=== PATIENT | male | born 1995 | race Caucasian/White ===

== ENCOUNTER 2017-07-04 15:34 | Emergency (ER) | payer BC ==
[2017-07-04 15:53] VITALS: RESP 16; TEMP 98.6
--- NOTE | 2017-07-04 16:22 | XR ---
EXAMINATION TYPE: XR chest 2V DATE OF EXAM: 07/04/2017 CLINICAL HISTORY: Pain TECHNIQUE: Frontal and lateral views of the chest are obtained. COMPARISON: None FINDINGS: There is no focal air space opacity, pleural effusion, or pneumothorax seen. The cardiac silhouette size is within normal limits. The osseous structures are intact. IMPRESSION: No acute cardiopulmonary process.
--- NOTE | 2017-07-04 16:28 | ED ---
General Adult HPI - General Chief complaint: Chest Pain Stated complaint: Chest pain/weakness Time Seen by Provider: 07/04/17 15:55 Source: patient Mode of arrival: wheelchair Limitations: no limitations - History of Present Illness Initial comments: Jae is a previously healthy 21 yo male who presents to the ED at his fathers request for evaluation of chest pain. Patient reports that he was in his usual state of health yesterday, he reports he had to [employer] for dinner and went to bed. Patient reports that he was woke during the night with a burning epigastric pain that radiated from his epigastrium to his retrosternal area. He reports that the pain lasted for a period of time and then subsided without any intervention. Patient was then able to go back to sleep. Patient reports that this morning he told his dad about this pain as stabbing became concerned advised him that he should be evaluated in the emergency department. Patient reports that throughout the day today he has not experienced any further episodes of chest pain. He reports that when he did experience an epigastric burning he did not have any shortness of breath, diaphoresis, lightheadedness or near-syncope. Patient states that he has no known cardiac history, however approximately 6 years ago his father was hospitalized after a cardiac arrest. At that time the patient did experience some panic attacks and followed up with his carry out clerk and shelf stocker , at that time he had a Holter monitor which revealed no abnormalities. Patient denies any recreational drug use, specifically any amphetamines, cocaine or any performance enhancing drugs. Reports that he is a every day cigarette smoker. Patient works in a physically demanding job but denies any recent injury or excessive heavy lifting atypical for his daily routine. - Related Data Home Medications Medication Instructions Recorded Confirmed Montelukast [Singulair] 10 mg PO DAILY 02/02/14 02/02/14 Previous Rx's Medication Instructions Recorded Omeprazole 20 mg PO DAILY #30 tablet. 07/04/17 Allergies Allergy/AdvReac Type Severity Reaction Status Date / Time No Known Allergies Allergy Verified 07/04/17 15:53 Review of Systems ROS Statement: Those systems with pertinent positive or pertinent negative responses have been documented in the HPI. ROS Other: All systems not noted in ROS Statement are negative. Constitutional: Reports: fever Past Medical History Additional Past Medical History / Comment(s): allergies, hearing problems History of Any Multi-Drug Resistant Organisms: None Reported Past Surgical History: Ear Surgery Past Psychological History: No Psychological Hx Reported Smoking Status: Never smoker Past Alcohol Use History: None Reported Past Drug Use History: None Reported General Exam Limitations: no limitations General appearance: alert, in no apparent distress, obese Head exam: Present: atraumatic, normocephalic Eye exam: Present: normal appearance, PERRL ENT exam: Present: normal exam Respiratory exam: Present: normal lung sounds bilaterally. Absent: respiratory distress, wheezes, rales, rhonchi, stridor, chest wall tenderness, accessory muscle use, decreased breath sounds, prolonged expiratory Cardiovascular Exam: Present: regular rate, normal rhythm, normal heart sounds. Absent: systolic murmur, diastolic murmur, rubs, gallop, clicks GI/Abdominal exam: Present: soft, tenderness (Mild tenderness to deep palpation in epigastrium). Absent: distended Extremities exam: Present: normal inspection, normal capillary refill Neurological exam: Present: alert, oriented X3 Psychiatric exam: Present: normal affect, normal mood Skin exam: Present: warm, dry, intact Course Vital Signs 07/04/17 15:51 Temperature 98.6 F Pulse Rate 81 Respiratory 16 Rate Blood Pressure 154/85 O2 Sat by Pulse 99 Oximetry Medical Decision Making - Medical Decision Making Patient was seen and evaluated, history was obtained from the patient Patient with burning epigastric pain radiating to the retrosternal area in the middle of the night tonight, when he advises father the symptoms he was brought to the emergency department for evaluation Patient has been symptom free for greater than 12 hours EKG and chest x-ray were ordered EKG normal sinus rhythm rate is 66, normal axis, normal intervals, no acute ST elevations or depressions Chest x-ray with no acute findings Results were discussed with the patient, I advised him that I suspect his symptoms are secondary to acid reflux, I advised dietary modifications as well as omeprazole. In addition I had a long discussion with the patient regarding the need for smoking cessation. Patient expressed understanding and agreement with the plan. All questions pertaining to care were answered best my ability patient was discharged home in stable condition Disposition Clinical Impression: GERD (gastroesophageal reflux disease), Tobacco abuse Disposition: HOME SELF-CARE Condition: Poor Instructions: Chest Pain (ED), How to Stop Smoking (ED) Prescriptions: Omeprazole 20 mg PO DAILY #30 tablet. Is patient prescribed a controlled substance at d/c from ED?: No Referrals: Shakeel Lux DO [Primary Care Provider] - 1-2 days Time of Disposition: 16:27
[2017-07-04 16:33] VITALS: BP 147/69; PULSE 67
== END 2017-07-04 16:43 | disposition home or self-care (01) ==
LOC: EC 15:34
DX: K21.9 Gastro-esophageal reflux disease without esophagitis (principal); F17.210 Nicotine dependence, cigarettes, uncomplicated; Z79.899 Other long term (current) drug therapy
CPT/HCPCS: 71046; 93005; 99285

== ENCOUNTER → 2018-09-27 | Outpatient (CLI) | payer BC ==
[2018-09-27 11:02] LABS: Basophils # (A) 0.1 k/uL (0-0.2); Basophils % (A) 0 %; Eosinophils # (A) 0.2 k/uL (0-0.7); Eosinophils % (A) 2 %; HCT 44.1 % (39.0-53.0); HGB 14.4 gm/dL (13.0-17.5); Lymphocytes # (A) 2.3 k/uL (1.0-4.8); Lymphocytes % (A) 19 %; MCH 29.6 pg (25.0-35.0); MCHC 32.6 g/dL (31.0-37.0); Mean Platelet Volume 7.5; Monocytes # (A) 0.7 k/uL (0-1.0); Monocytes % (A) 6 %; Neutrophils # (A) 8.3 k/uL (1.3-7.7); Neutrophils % (A) 70 %; Platelet Count 272 k/uL (150-450); RBC 4.84 m/uL (4.30-5.90); RDW 13.3 % (11.5-15.5); WBC 11.8 k/uL (3.8-10.6)
== END | disposition home or self-care (01) ==
LOC: LABWHC1 10:19
PROVIDERS: ATTEND Otolaryngology
DX: J02.9 Acute pharyngitis, unspecified (principal); R53.83 Other fatigue
CPT/HCPCS: 36415; 85025; 86308

== ENCOUNTER 2018-11-01 22:59 | Emergency (ER) | payer BC ==
[2018-11-01 23:06] VITALS: RESP 18
[2018-11-01] MEDS ORDERED: SODIUM CHLORIDE 0.9% 500 ML 500 ML IV ONE (23:49)
[2018-11-02 00:42] LABS: Basophils # (A) 0.1 k/uL (0-0.2); Basophils % (A) 1 %; Eosinophils # (A) 0.3 k/uL (0-0.7); Eosinophils % (A) 3 %; HCT 39.3 % (39.0-53.0); HGB 12.9 gm/dL (13.0-17.5); Lymphocytes # (A) 2.6 k/uL (1.0-4.8); Lymphocytes % (A) 24 %; MCH 29.1 pg (25.0-35.0); MCHC 32.8 g/dL (31.0-37.0); MCV 88.9 fL (80.0-100.0); Mean Platelet Volume 6.8; Monocytes # (A) 0.6 k/uL (0-1.0); Monocytes % (A) 5 %; Neutrophils # (A) 7.2 k/uL (1.3-7.7); Neutrophils % (A) 66 %; Platelet Count 299 k/uL (150-450); RBC 4.42 m/uL (4.30-5.90); RDW 13.3 % (11.5-15.5); WBC 10.9 k/uL (3.8-10.6)
[2018-11-02 01:47] LABS: ALT 30 U/L (21-72); AST 25 U/L (17-59); African American GFR (CKD) >90 (>60 ml/min/1.73 sqM); Albumin 4.1 g/dL (3.5-5.0); Alkaline Phosphatase 83 U/L (38-126); Anion Gap 10 mmol/L; Blood Urea Nitrogen 14 mg/dL (9-20); Calcium 9.5 mg/dL (8.4-10.2); Carbon Dioxide 24 mmol/L (22-30); Chloride 105 mmol/L (98-107); Glucose 103 mg/dL (74-99); Sodium 139 mmol/L (137-145); Total Bilirubin 0.6 mg/dL (0.2-1.3); Total Protein 7.3 g/dL (6.3-8.2)
--- NOTE | 2018-11-02 02:20 | ED ---
Extremity Problem HPI - General Chief complaint: Extremity Problem,Nontraumatic Stated complaint: swollen ankles Time Seen by Provider: 11/01/18 23:09 Source: patient Mode of arrival: ambulatory Limitations: no limitations - History of Present Illness Initial comments: 23-year-old male patient presents to the emergency department today for evaluation of lower extremity swelling. Patient states that his legs have been swollen over the last couple of days. Patient states that he was off work after having his tonsils removed. Patient states upon returning to work he noticed that his legs are becoming more swollen. States he has had some redness over the anterior aspect. Denies any fever or chills. Denies any history of similar symptoms. Denies any calf pain or tenderness. Denies any recent long car trips or history of DVT. Denies any use of hormonal medications. He denies any shortness of breath or cough. Patient states he was started on amlodipine by his ENT physician 2 weeks ago. Patient denies any recent rash, chest pain, abdominal pain, nausea, vomiting, diarrhea, constipation, back pain, numbness, tingling, dizziness, weakness, hematuria, dysuria, urinary urgency, urinary frequency, headache, visual changes, or any other complaints. - Related Data Home Medications Medication Instructions Recorded Confirmed Montelukast [Singulair] 10 mg PO DAILY 02/02/14 02/02/14 Previous Rx's Medication Instructions Recorded Omeprazole 20 mg PO DAILY #30 tablet. 07/04/17 Allergies Allergy/AdvReac Type Severity Reaction Status Date / Time No Known Allergies Allergy Verified 11/01/18 23:04 Review of Systems ROS Statement: Those systems with pertinent positive or pertinent negative responses have been documented in the HPI. ROS Other: All systems not noted in ROS Statement are negative. Past Medical History Past Medical History: Hypertension Additional Past Medical History / Comment(s): allergies, hearing problems History of Any Multi-Drug Resistant Organisms: None Reported Past Surgical History: Adenoidectomy, Ear Surgery, Tonsillectomy Past Psychological History: No Psychological Hx Reported Smoking Status: Current some day smoker Past Alcohol Use History: Occasional Past Drug Use History: None Reported General Exam Limitations: no limitations General appearance: alert, in no apparent distress, other (This is a well- developed,) Course Vital Signs 11/01/18 11/01/18 11/02/18 23:02 23:34 00:57 Temperature 98.4 F Pulse Rate 89 88 Respiratory 18 18 Rate Blood Pressure 159/91 121/82 117/72 O2 Sat by Pulse 98 97 Oximetry 11/02/18 03:01 Temperature 97.9 F Pulse Rate 80 Respiratory 18 Rate Blood Pressure 111/72 O2 Sat by Pulse 99 Oximetry Medical Decision Making - Medical Decision Making 23-year-old male patient presents to the emergency department today for evaluation bilateral lower extremity edema. Patient states when for the last 2 days. Physical examination did reveal nonpitting edema to the bilateral ankle and feet. Labs reviewed and are unremarkable. Patient did report he started taking amlodipine couple weeks ago after having a tonsillectomy. We did discuss possible side effect of amlodipine his lower extremities swelling. He is instructed to follow-up with his primary care physician for further evaluation and discussion of discontinuing this medication. He is instructed to keep his legs elevated. Return parameters were discussed in detail. He verbalizes understanding and agrees with this plan. - Lab Data Result diagrams: 11/02/18 00:10 11/02/18 00:10 Lab Results 11/02/18 11/02/18 Range/Units 00:10 00:10 WBC 10.9 H (3.8-10.6) k/uL RBC 4.42 (4.30-5.90) m/uL Hgb 12.9 L (13.0-17.5) gm/dL Hct 39.3 (39.0-53.0) % MCV 88.9 (80.0-100.0) fL MCH 29.1 (25.0-35.0) pg MCHC 32.8 (31.0-37.0) g/dL RDW 13.3 (11.5-15.5) % Plt Count 299 (150-450) k/uL Neutrophils % 66 % Lymphocytes % 24 % Monocytes % 5 % Eosinophils % 3 % Basophils % 1 % Neutrophils # 7.2 (1.3-7.7) k/uL Lymphocytes # 2.6 (1.0-4.8) k/uL Monocytes # 0.6 (0-1.0) k/uL Eosinophils # 0.3 (0-0.7) k/uL Basophils # 0.1 (0-0.2) k/uL Sodium 139 (137-145) mmol/L Potassium 4.0 (3.5-5.1) mmol/L Chloride 105 (98-107) mmol/L Carbon Dioxide 24 (22-30) mmol/L Anion Gap 10 mmol/L BUN 14 (9-20) mg/dL Creatinine 0.76 (0.66-1.25) mg/dL Est GFR (CKD-EPI)AfAm >90 (>60 ml/min/1.73 sqM) Est GFR (CKD-EPI)NonAf >90 (>60 ml/min/1.73 sqM) Glucose 103 H (74-99) mg/dL Calcium 9.5 (8.4-10.2) mg/dL Total Bilirubin 0.6 (0.2-1.3) mg/dL AST 25 (17-59) U/L ALT 30 (21-72) U/L Alkaline Phosphatase 83 (38-126) U/L Total Protein 7.3 (6.3-8.2) g/dL Albumin 4.1 (3.5-5.0) g/dL Disposition Clinical Impression: Lower extremity edema Disposition: HOME SELF-CARE Condition: Good Instructions (If sedation given, give patient instructions): Leg Edema (ED) Additional Instructions: Stop taking blood pressure medication. Keep legs elevated. Follow up with your primary care physician for recheck in 1-2 days. Return to the emergency department for any new, worsening, or concerning symptoms. Is patient prescribed a controlled substance at d/c from ED?: No Referrals: Shakeel Lux DO [Primary Care Provider] - 1-2 days Time of Disposition: 02:20
[2018-11-02 03:03] VITALS: BP 111/72; PULSE 80; TEMP 97.9
== END 2018-11-02 03:03 | disposition home or self-care (01) ==
LOC: EC 22:59
DX: R60.0 Localized edema (principal); F17.200 Nicotine dependence, unspecified, uncomplicated; Z79.899 Other long term (current) drug therapy
CPT/HCPCS: 36415; 80053; 85025; 96360; 99283

== ENCOUNTER → 2020-09-04 | Outpatient (CLI) | payer BC ==
--- NOTE | 2020-09-04 10:06 | XR ---
Right wrist HISTORY: Right wrist pain 3 views of the right wrist There is negative ulnar variance. Bone mineralization, joint spaces and alignment are otherwise maint ained. No fracture or dislocation. IMPRESSION: No acute abnormality. Additional findings above. Wrist MRI may be of benefit.
== END | disposition home or self-care (01) ==
LOC: RADXRYALE 08:49
PROVIDERS: ATTEND Physician Assistant Medical
DX: M25.531 Pain in right wrist (principal)

== ENCOUNTER 2023-10-24 20:29 | Emergency (ER) | payer BC ==
[2023-10-24] MEDS ORDERED: MECLIZINE 25 MG TAB ONE (22:32)
[2023-10-24] MEDS ORDERED: LACTATED RINGERS 1,000 ML BAG ONE (22:47)
--- NOTE | 2023-12-08 15:05 | CT ---
EXAM: CT Head Without Intravenous Contrast CLINICAL HISTORY: dizzy, light headed TECHNIQUE: Axial computed tomography images of the head/brain without intravenous contrast. CTDI is 31.63 mGy and DLP is 782.26 mGy-cm. This CT exam was performed using one or more of the following dose reduction techniques: automated exposure control, adjustment of the mA and/or kV according to patient size, and/or use of iterative reconstruction technique. COMPARISON: No relevant prior studies available. FINDINGS: Brain:Unremarkable. No hemorrhage. No significant white matter disease. No edema. Ventricles:Unremarkable. No ventriculomegaly. Bones/joints:Unremarkable. No acute fracture. Soft tissues:Unremarkable. Sinuses:Chronic maxillary sinusitis. No acute sinusitis. Mastoid air cells:Unremarkable as visualized. No mastoid effusion. IMPRESSION: No evidence of acute intracranial pathology. EXAM: CT Angiography Head Without and With Intravenous Contrast CLINICAL HISTORY: dizzy, light headed TECHNIQUE: Axial computed tomographic angiography images of the head without and with intravenous contrast. CTDI is 31.63 mGy and DLP is 782.26 mGy-cm. This CT exam was performed using one or more of the following dose reduction techniques: automated exposure control, adjustment of the mA and/or kV according to patient size, and/or use of iterative reconstruction technique. MIP reconstructed images were created and reviewed. COMPARISON: No relevant prior studies available. FINDINGS: This study is limited secondary to motion artifact. VASCULATURE: The dural venous sinuses are patent. Right internal carotid artery:No acute findings. Intracranial segment is patent with no significant stenosis. No aneurysm. Right anterior cerebral artery:Unremarkable. No occlusion or significant stenosis. No aneurysm. Right middle cerebral artery:Unremarkable. No occlusion or significant stenosis. No aneurysm. Right posterior cerebral artery:Unremarkable. No occlusion or significant stenosis. No aneurysm. Right vertebral artery:Unremarkable as visualized. Left internal carotid artery:No acute findings. Intracranial segment is patent with no significant stenosis. No aneurysm. Left anterior cerebral artery:Unremarkable. No occlusion or significant stenosis. No aneurysm. Left middle cerebral artery:Unremarkable. No occlusion or significant stenosis. No aneurysm. Left posterior cerebral artery:Unremarkable. No occlusion or significant stenosis. No aneurysm. Left vertebral artery:Unremarkable as visualized. Basilar artery:Unremarkable. No occlusion or significant stenosis. No aneurysm. HEAD: Brain:No acute findings. No hemorrhage. No edema. Normal enhancement. Ventricles:Unremarkable. No ventriculomegaly. Bones/joints:No acute fracture. Soft tissues:Unremarkable. Sinuses:Unremarkable as visualized. No acute sinusitis. Mastoid air cells:Unremarkable as visualized. No mastoid effusion. IMPRESSION: No evidence of large vessel occlusion on this limited study. EXAM: CT Angiography Neck With Intravenous Contrast CLINICAL HISTORY: dizzy, light headed TECHNIQUE: Routine carotid CT angiography protocol was performed with intravenous contrast. NASCET criteria using the distal ICAs for comparison were used for evaluation of stenoses. CTDI is 31.63 mGy and DLP is 782.26 mGy-cm. This CT exam was performed using one or more of the following dose reduction techniques: automated exposure control, adjustment of the mA and/or kV according to patient size, and/or use of iterative reconstruction technique. MIP reconstructed images were created and reviewed. COMPARISON: None. FINDINGS: VASCULATURE: Right common carotid artery:Unremarkable. No occlusion or significant stenosis. No dissection. Right internal carotid artery:Unremarkable. Extracranial segment is patent with no occlusion or significant stenosis. No dissection. Right external carotid artery:Unremarkable. No occlusion. Right vertebral artery:Unremarkable. No occlusion or significant stenosis. No dissection. Left common carotid artery:Unremarkable. No occlusion or significant stenosis. No dissection. Left internal carotid artery:Unremarkable. Extracranial segment is patent with no occlusion or significant stenosis. No dissection. Left external carotid artery:Unremarkable. No occlusion. Left vertebral artery:Unremarkable. No occlusion or significant stenosis. No dissection. NECK: Bones/joints:Unremarkable. No acute fracture. Soft tissues:Unremarkable. Lung apices:Bronchitis which maybe of infectious or inflammatory etiologies. CAROTID STENOSIS REFERENCE USING NASCET CRITERIA: %ICA stenosis = (1 - narrowest ICA diameter/diameter of distal cervical ICA) x 100. Mild - <50%stenosis. Moderate - 50-69%stenosis. Severe - 70-94%stenosis. Near occlusion - 95-99%stenosis. Occluded - 100%stenosis. IMPRESSION: Negative CTA neck. Radiologist: Melani Anguiano MD Electronically Signed: 10/25/23 02:30 Study ready at 01:40 and initial results transmitted at 02:30 Results also transmitted to Film Room, Film Room @ [phone] (Fax) [facility]
== END 2023-10-25 03:03 | disposition home or self-care (01) ==
LOC: EC 20:29
DX: H81.10 Benign paroxysmal vertigo, unspecified ear (principal)
CPT/HCPCS: 70450; 70496; 70498; 93005; 99284